=== PATIENT | female | born 1995 | race Caucasian/White ===

== ENCOUNTER 2018-07-16 10:48 | Day surgery (SDC) | payer OTHER ==
[2018-07-15 11:15] VITALS: BMI 36.6
[2018-07-16] MEDS ORDERED: CEFAZOLIN 2 GM/50 ML BAG ONE (11:32)
[2018-07-16] MEDS ORDERED: Famotidine/PF 20 mg/2ml Vial ONE (11:42)
[2018-07-16] MEDS ORDERED: Bupivacaine PF 0.5% 30 ML VIAL ONE (11:50)
[2018-07-16] MEDS ORDERED: Fentanyl 100 MCG/2 ML VIAL ONE ×6 (13:09→15:21)
[2018-07-16] MEDS ORDERED: Promethazine HCl 25 MG/ML VIAL ONE (14:34)
--- NOTE | 2018-07-16 14:55 | RAD ---
RIGHT ANKLE 3 VIEWS: Date: 07/16/18 HISTORY: Hardware removal from right ankle. FINDINGS/IMPRESSION: Comparison made with exam of 05/02/17. Plate and screws in the distal fibula are again seen. There has been interval removal of the plate an d screws in the distal tibia since the previous study, except for a screw remnant in the tibial plafo nd. POS: [facility]
[2018-07-16] MEDS ORDERED: Meperidine HCl/PF 25 MG/ML VIAL ONE (15:09)
--- NOTE | 2018-07-17 22:27 | OP ---
DATE OF PROCEDURE: 07/16/2018 PREOPERATIVE DIAGNOSIS: Right tibia symptomatic retained hardware. POSTOPERATIVE DIAGNOSIS: Right tibia symptomatic retained hardware. SURGICAL PROCEDURE: Removal of symptomatic retained hardware, right tibia, long medial plate with mu ltiple screws. ANESTHESIA: General. SURGEON: Tulio Oneill M.D. TOURNIQUET TIME: 35 minutes at 300 mmHg. SPECIMEN: Explanted hardware to be given to the patient. DRAINS: None. IMPLANTS: None. COMPLICATIONS: None. INDICATIONS: The patient is a pleasant 22-year-old lady, status post fracture of right distal tibia and fibular shaft. The patient has gone on to uneventful union, but is having symptoms that is felt to be possibly secondary to retained tibial hardware. As such, after discussion with patient includi ng risks and benefits, we decided to proceed with removal of medial tibial hardware. Informed consen t has been obtained. I believe all questions have been answered. PROCEDURE IN DETAIL: After the patient was brought to the operating room, a timeout was performed fo llowed by induction of general anesthesia. The patient was then positioned supine on the OR table an d a sterile prep and drape was performed of the right lower extremity. Next, following her previous skin incisions, 3 total incisions were made, one centered over the medial malleolus, the other one a very small incision just proximal to the first and the last one a 2-inch incision at about the mid sh aft of the tibia. After the skin was incised in each of these 3 locations, dissection was carried do wn bluntly exposing the underlying plate and screws. The screws were then removed without difficulty with the middle screws requiring C-arm guidance to help with hardware removal. Once all the screws had been removed, the plate was removed without difficulty and then final AP, lateral C-arm image was obtained. It should be noted that one of the distal most screws was broken and an attempt was made to remove the screw; however, it was somewhat fragmented and was felt that further attempts at remova l of the screw would be more damaging and just leaving the screw in place. AP, lateral images of the ankle confirmed that the screw was not in the joint and buried deep in the distal tibia. As such, e ach of the 3 incisions were then thoroughly irrigated with normal saline and then closed in layers wi th 0 Vicryl deep, followed by 2-0 Vicryl and then harjeet. The patient was then dressed with a combi nation of Xeroform, gauze, Kerlix, and an Laci wrap. She was then transferred to recovery room in sta ble condition. It should be noted that prior to the first skin incision, the limb was exsanguinated with Esmarch bandage and tourniquet inflated to 300 mmHg. The tourniquet was let down at the complet ion of dressing. There were no complications. She tolerated the procedure well.
== END 2018-07-16 17:30 | disposition home or self-care (01) ==
LOC: SDC 10:48
PROVIDERS: ATTEND Orthopaedic Surgery
PROC: 0QPG04Z Removal of Internal Fixation Device from Right Tibia, Open Approach (ICD-10-PCS; principal; 2018-07-16)
DX: T84.84XA Pain due to internal orthopedic prosthetic devices, implants and grafts, initial encounter (principal); F17.210 Nicotine dependence, cigarettes, uncomplicated; G43.909 Migraine, unspecified, not intractable, without status migrainosus; F41.9 Anxiety disorder, unspecified; F32.9 Major depressive disorder, single episode, unspecified; F42.9 Obsessive-compulsive disorder, unspecified; Z79.1 Long term (current) use of non-steroidal anti-inflammatories (NSAID); Z79.899 Other long term (current) drug therapy; Z91.048 Other nonmedicinal substance allergy status; Z98.890 Other specified postprocedural states
CPT/HCPCS: 76001; 96374; 96375; 96376; J0131; J2175; J2550; J3010; S0020; S0028

== ENCOUNTER 2018-10-23 04:59 | Emergency (ER) | payer OTHER ==
[2018-10-23] MEDS ORDERED: diphenhydrAMINE 50 MG/ML VIAL ONE (05:25)
[2018-10-23 05:57] LABS: #Lymphocytes 2.3 thou/uL (1.20-3.40); #Monocytes 1.1 thou/uL (0.11-0.59); #Neutrophils 8.3 thou/uL (1.40-6.50); %Basophils 0.1 % (0.0-1.0); %Eosinophils 0.3 % (0.0-10.0); %Lymphocytes 19.4 % (21.0-51.0); %Monocytes 9.2 % (0.0-10.0); Hemoglobin 14.3 g/dL (12.0-16.0); Mean Corpuscular Hemoglobin 31.2 pg (27.0-31.0); Mean Corpuscular Volume 91.6 fL (78.0-98.0); Mean Platelet Volume 8.8 fL (7.4-10.4); Platelet Count 282 thou/uL (130-400); RBC Distribution Width 10.9 % (11.5-14.5); Red Blood Cell (RBC) Count 4.58 mill/uL (4.20-5.40); White Blood Cell (WBC) Count 11.7 thou/uL (4.8-10.8)
[2018-10-23 06:00] LABS: BHCG - Serum Negative (NEGATIVE); Pregs Control Background? CLEAR/WHITE (CLR/WHITE); Pregs Control Bar Appear? YES (CONTROL BAR)
[2018-10-23 06:22] LABS: ALT (SGPT) 23 U/L (8-55); AST (SGOT) 25 U/L (5-34); Albumin 4.9 g/dL (3.5-5.0); Alkaline Phosphatase 67 U/L (40-150); Anion Gap 18 mmol/L (10-20); BUN (Urea Nitrogen) 9 mg/dL (7.0-18.7); Bilirubin, Total 1.1 mg/dL (0.2-1.2); Calc. Creatinine Clearance 0 mL/min (70-130); Calcium 10.2 mg/dL (7.8-10.44); Carbon Dioxide 20 mmol/L (22-29); Chloride 102 mmol/L (98-107); Estimated GFR-MDRD Greater than 90; Globulin 3.9 g/dL (2.4-3.5); Glucose 107 mg/dL (70-105); Potassium 4.9 mmol/L (3.5-5.1); Protein, Total 8.8 g/dL (6.0-8.3); Sodium 135 mmol/L (136-145)
[2018-10-23] MEDS ORDERED: Ondansetron PF 4 MG/2 ML Vial ONE (07:36)
[2018-10-23] MEDS ORDERED: Pantoprazole 40 MG VIAL ONE (07:37)
[2018-10-23] MEDS ORDERED: Mag-Al 1200 mg/1200 mg/30 ML UDCUP ONE (07:37)
[2018-10-23] MEDS ORDERED: Lidocaine Viscous Sol 2% 15 ml UD Cup ONE (07:37)
== END 2018-10-23 09:18 | disposition home or self-care (01) ==
LOC: ERS 04:59
DX: R11.2 Nausea with vomiting, unspecified (principal); R10.13 Epigastric pain; G43.909 Migraine, unspecified, not intractable, without status migrainosus; F41.9 Anxiety disorder, unspecified; F32.9 Major depressive disorder, single episode, unspecified; F17.210 Nicotine dependence, cigarettes, uncomplicated; Z79.899 Other long term (current) drug therapy
CPT/HCPCS: 80053; 84703; 85025; 96361; 96374; 96375; C9113; J1200; J2405